=== PATIENT | female | born 1990 | race Caucasian/White ===

== ENCOUNTER 2017-09-10 10:43 | Emergency (ER) | payer MEDICAID, OTHER ==
[~2017-09-10] VITALS: Ht 165.1 cm; Wt 65.8 kg
[2017-09-10 10:52] VITALS: BP 109/68
--- NOTE | 2017-09-10 11:41 | NUR ---
called lab for flower buncher or picker
== END 2017-09-10 12:36 | disposition home or self-care (01) ==
LOC: ER 10:46
DX: J02.8 Acute pharyngitis due to other specified organisms (principal); Z90.89 Acquired absence of other organs
CPT/HCPCS: 87070; 87880; 99284; A4606; Z7610; 86403-TC